=== PATIENT | male | born 1960 | race African-American/Black ===

== ENCOUNTER 2017-06-24 09:17 | Emergency (ER) | payer OTHER ==
[~2017-06-24] VITALS: Ht 198.1 cm; Wt 65.5 kg
[~2017-06-24 09:17] MED LIST: KEFLEX500 MG PO; PERCOCET 5/31 TABLET PO
[2017-06-24] MEDS ORDERED: PERCOCET 5/31 TABLET PO (14:15)
[2017-06-24] MEDS ORDERED: MEDROL DOSEPAK4 MG PO (14:15)
[2017-06-24 14:36] VITALS: BP 158/97
== END 2017-06-24 14:37 | disposition home or self-care (01) ==
LOC: EME 09:17
DX: M54.32 Sciatica, left side (principal); F17.200 Nicotine dependence, unspecified, uncomplicated
CPT/HCPCS: 99281; 99283; J7512

== ENCOUNTER → 2017-09-06 | Outpatient (CLI) | payer OTHER ==
[~2017-09-06] MED LIST changes: +MEDROL DOSEPAK4 MG PO; +MOTRIN800 MG PO
== END | disposition home or self-care (01) ==
LOC: RAD 08:57
DX: R91.1 Solitary pulmonary nodule (principal); R91.8 Other nonspecific abnormal finding of lung field
CPT/HCPCS: 71260

== ENCOUNTER 2017-09-09 20:14 | Inpatient (IN) | payer OTHER ==
[~2017-09-09] VITALS: Ht 198.1 cm; Wt 67.9 kg
[~2017-09-09 20:14] MED LIST changes: -MOTRIN800 MG PO
[2017-09-09 20:35] LABS: HEMATOCRIT 44.7 % (38.0-50.0); HEMOGLOBIN 15.2 G/DL (12.5-16.6); MCH 32.8 PG (29.0-34.0); MCV 96.5 FL (86-99); PLATELET COUNT 410 K/uL (156-360); RBC DIS.WIDTH-CV 13.8 % (11.8-14.6); RBC DIS.WIDTH-SD 49.2 % (39-53); RED BLOOD COUNT 4.63 M/uL (4.00-5.50); WHITE BLOOD COUNT 10.5 K/uL (4.1-10.2)
[2017-09-09 21:03] LABS: CHLORIDE 102 MEQ/L (99-109); POTASSIUM 4.1 MEQ/L (3.7-5.4); SODIUM 140 MEQ/L (136-147)
[2017-09-09 21:08] LABS: CREATININE 1.2 MG/DL (0.6-1.3); GFR ESTIMATE (CALCULATED) > 59 mL/min/ (58.99-99999); GLUCOSE 123 mg/dL (70-99); UREA NITROGEN (BUN) 21 mg/dL (9-23)
[2017-09-09 22:31] LABS: ALBUMIN 3.9 G/DL (3.2-4.8); ALKALINE PHOSPHATASE 95 IU/L (3-129); ALT (GPT) 41 IU/L (3-49); AST (GOT) 39 IU/L (2-34); TOTAL BILIRUBIN 0.3 MG/DL (0.0-1.0); TOTAL PROTEIN 7.6 G/DL (6.4-8.3)
[2017-09-09 22:35] LABS: TROP-I INTERPRETATION NEGATIVE; TROPONIN-I 0.01 ng/mL (0.0-0.30)
[2017-09-10 04:36] LABS: MAGNESIUM 2.3 mg/dl (1.3-2.7)
[2017-09-10 04:41] VITALS: BP 122/80
[2017-09-10 07:59] VITALS: BP 101/67
[2017-09-10 09:02] LABS: HEMOGLOBIN 13.7 G/DL (12.5-16.6); MCH 32.5 PG (29.0-34.0); MCHC 33.4 G/DL (30.0-36.0); MCV 97.4 FL (86-99); PLATELET COUNT 330 K/uL (156-360); RBC DIS.WIDTH-CV 14.2 % (11.8-14.6); RBC DIS.WIDTH-SD 50.8 % (39-53); RED BLOOD COUNT 4.21 M/uL (4.00-5.50); WHITE BLOOD COUNT 9.2 K/uL (4.1-10.2)
[2017-09-10 09:32] LABS: CHLORIDE 102 MEQ/L (99-109); GFR ESTIMATE (CALCULATED) > 59 mL/min/ (58.99-99999); GLUCOSE 103 mg/dL (70-99); SODIUM 140 MEQ/L (136-147); UREA NITROGEN (BUN) 17 mg/dL (9-23)
[2017-09-10] MEDS ORDERED: MOTRIN800 MG PO (10:00)
[2017-09-10 13:53] VITALS: BP 110/68
[2017-09-10 16:51] VITALS: BP 115/74
[2017-09-10 23:45] VITALS: BP 112/56
[2017-09-11 04:05] VITALS: BP 118/61
[2017-09-11 08:42] VITALS: BP 108/66
[2017-09-11 12:25] VITALS: BP 119/74
[2017-09-11 20:00] VITALS: BP 162/63
[2017-09-11 23:47] VITALS: BP 128/67
[2017-09-12 03:46] VITALS: BP 95/50
[2017-09-12 06:29] LABS: BASOPHIL (%) 0.1 % (0-1); EOSINOPHIL (%) 0 % (0-5); HEMATOCRIT 35.5 % (38.0-50.0); IMMATURE GRANULOCYTE (%) 0.6 % (0.0-0.7); LYMPHOCYTE (%) 6.3 % (15-42); LYMPHOCYTE COUNT 1.1 K/uL (1.0-2.8); MCHC 33.8 G/DL (30.0-36.0); MCV 97.5 FL (86-99); MONOCYTE (%) 3.1 % (3-12); MONOCYTE COUNT 0.5 K/uL (0-0.8); NEUTROPHIL (%) 89.9 % (45-76); PLATELET COUNT 295 K/uL (156-360); RBC DIS.WIDTH-CV 13.9 % (11.8-14.6); RBC DIS.WIDTH-SD 50.3 % (39-53); RED BLOOD COUNT 3.64 M/uL (4.00-5.50); WHITE BLOOD COUNT 16.7 K/uL (4.1-10.2)
[2017-09-12 07:04] VITALS: BP 117/68
[2017-09-12 07:06] LABS: CHLORIDE 107 MEQ/L (99-109); CREATININE 0.9 MG/DL (0.6-1.3); GFR ESTIMATE (CALCULATED) > 59 mL/min/ (58.99-99999); POTASSIUM 4.2 MEQ/L (3.7-5.4); SODIUM 141 MEQ/L (136-147); UREA NITROGEN (BUN) 21 mg/dL (9-23)
[2017-09-12 07:12] LABS: GLUCOSE 207 mg/dL (70-99)
[2017-09-12 10:53] VITALS: BP 122/66
[2017-09-12 11:55] VITALS: BP 118/70
[2017-09-12 16:37] VITALS: BP 116/64
[2017-09-12 19:17] VITALS: BP 138/76
== END 2017-09-12 21:10 | disposition short-term general hospital (02) | DRG 180 ==
LOC: EME 20:14 → EDOF 09-10 03:18 → 5WEST 09-10 03:18 → EDOF 09-10 03:18 → ENRESERV 09-10 03:19 → 5WEST 09-10 04:31
PROVIDERS: Hospitalist; Student in an Organized Health Care Education/Training Program
PROC: 0BD78ZX Extraction of Left Main Bronchus, Via Natural or Artificial Opening Endoscopic, Diagnostic (ICD-10-PCS; principal; 2017-09-11)
PROC: 0B978ZX Drainage of Left Main Bronchus, Via Natural or Artificial Opening Endoscopic, Diagnostic (ICD-10-PCS; principal; 2017-09-11)
DX: C34.82 Malignant neoplasm of overlapping sites of left bronchus and lung (principal); J18.9 Pneumonia, unspecified organism; J44.0 Chronic obstructive pulmonary disease with (acute) lower respiratory infection; J44.1 Chronic obstructive pulmonary disease with (acute) exacerbation; C77.1 Secondary and unspecified malignant neoplasm of intrathoracic lymph nodes; C78.02 Secondary malignant neoplasm of left lung; Z68.1 Body mass index [BMI] 19.9 or less, adult; R04.2 Hemoptysis; F10.10 Alcohol abuse, uncomplicated; I73.9 Peripheral vascular disease, unspecified; F17.210 Nicotine dependence, cigarettes, uncomplicated; R63.4 Abnormal weight loss; Y90.9 Presence of alcohol in blood, level not specified
CPT/HCPCS: 70553; 71046; 71275; 80048; 80076; 82948; 83735; 84484; 85025; 85027; 85610; 87070; 87205; 88108; 88173; 88305; 88312; 93005; 94640; 94640 76; 99202; 99281; 99285; G0378; J0461; J2250; J2310; J2543; J2550; J2920; J2930; J3010; J3411; J7030; J7050